=== PATIENT | female | born 1985 | race Two or more races ===

== ENCOUNTER 2023-12-13 10:38 | Emergency (ER) | payer MEDICAID ==
[~2023-12-13] VITALS: Ht 175.3 cm; Wt 90.7 kg
[2023-12-13] MEDS ORDERED: ACET1TAB23 PO (11:21)
[2023-12-13] MEDS ORDERED: OFLO5DRO5 RIGHT EAR (11:21)
[2023-12-13 12:17] VITALS: BP 137/84; TEMP 98.3; O2SAT 98
== END 2023-12-13 12:17 | disposition home or self-care (01) ==
LOC: ER 10:38
DX: H60.91 Unspecified otitis externa, right ear (principal); Z79.899 Other long term (current) drug therapy
CPT/HCPCS: A4606; A4663